=== PATIENT | female | born 1960 | race Asian ===

== ENCOUNTER 2017-12-10 06:47 | Day surgery (SDC) | payer OTHER ==
[~2017-12-10 06:47] MED LIST: CEFAZOLIN 1 GM/50 ML (PMX) 50 ML IVPB; CEFAZOLIN 2 GM/50 ML (PMX) 50 ML IVPB; SOD CHLORIDE 0.9% 1,000 ML IV
[2017-12-10] MEDS ORDERED: FENTAnyl 50 MCG/ML VIAL (10:11)
[2017-12-10] MEDS ORDERED: PROPOFOL 100 ML (10:11)
[2017-12-10] MEDS ORDERED: CEFAZOLIN 1 GM INJ (10:27)
[2017-12-10] MEDS ORDERED: EPHEDrine SULFATE 50 MG/5 ML SYG IV (10:30)
[2017-12-10] MEDS ORDERED: MEPERIDINE 25 MG INJ IV (10:30)
[2017-12-10] MEDS ORDERED: KETOROLAC 30 MG INJ IV (10:30)
[2017-12-10] MEDS ORDERED: HYDROmorphONE (0.2 MG/ML) 10ML SYG IV (10:30)
[2017-12-10] MEDS ORDERED: METOCLOPRAMIDE 10 MG INJ IV (10:30)
[2017-12-10] MEDS ORDERED: hydrALAzine 20 MG INJ IV (10:30)
[2017-12-10] MEDS ORDERED: DIPHENHYDRAMINE 50 MG INJ IV (10:30)
[2017-12-10] MEDS ORDERED: ALBUTEROL 0.083% (NEB) 2.5 MG/3 ML AMP HHN (10:30)
[2017-12-10] MEDS ORDERED: FENTAnyl 50 MCG/ML VIAL IV ×3 (10:30)
[2017-12-10] MEDS ORDERED: OXYCODONE/ACETAMINOPHEN (5/325) TAB PO ×2 (10:30)
[2017-12-10] MEDS ORDERED: LABETALOL HCL 20MG INJ IV (10:30)
[2017-12-10] MEDS ORDERED: LIDOCAINE 2% (SDV) 5 ML INJ (10:44)
[2017-12-10] MEDS: BUPIVACAINE 0.25% (MPF) 30 ML INJ (10:54)
[2017-12-10] MEDS ORDERED: HYDROCODONE/APAP (5/325) TAB PO (11:00)
[2017-12-10] MEDS: HYDROmorphONE (0.2 MG/ML) 10ML SYG IV (11:35)
[2017-12-10] MEDS: ONDANSETRON 4 MG INJ IV (12:15)
== END 2017-12-10 13:20 | disposition home or self-care (01) ==
LOC: SDS 06:47
DX: D17.1 Benign lipomatous neoplasm of skin and subcutaneous tissue of trunk (principal); E11.9 Type 2 diabetes mellitus without complications; I10 Essential (primary) hypertension
CPT/HCPCS: 14000; 82962; 88307